=== PATIENT | female | born 1990 | race Caucasian/White ===

== ENCOUNTER 2021-06-03 10:53 | Emergency (ER) | payer BC, SELFPAY ==
[2021-06-03 11:02] VITALS: BP 115/76; PULSE 78; RESP 18; TEMP 36.7; O2SAT 100; BMI 21.6
--- NOTE | 2021-06-03 11:49 | ED.GENADULT ---
HPI - General Adult General Chief complaint: General Medical Stated complaint: poison tariq Time Seen by Provider: 06/03/21 11:49 History of Present Illness HPI narrative: patient complains of itchy rash all over body after gardening same as prior episodes of poison tariq, also complains of a foreign body sensation in the upper right lid eyelid Related Data Previous Rx's Medication Instructions Recorded cetirizine 10 mg PO DAILY PRN #14 cap MDD 06/03/21 rash and itch prednisone 10 mg PO DAILY 8 Days #8 tab 06/03/21 Allergies Allergy/AdvReac Type Severity Reaction Status Date / Time Sulfa (Sulfonamide Allergy Hives Verified 06/03/21 11:02 Antibiotics) Review of Systems Review of Systems: positive for itchy rash Negatives are no fever no chills no dizziness no weakness no feeling faint no headache no sore throat no difficulty breathing or swallowing no swelling in the throat Yes all other systems are reviewed and are negative PMFSH Past Medical History Source: nursing notes reviewed Medical History (Updated 06/04/21 @ 00:01 by Rossana Briones) Hernia Irregular heart beat Surgical History (Updated 06/03/21 @ 11:04 by Diane Roberts RN) History of cardiac radiofrequency ablation Social History Social History Advance Directives: Yes Advance Directives Information Provided: Yes Advance Directives on File: No Patient : No Physical Exam Vital Signs: Vital Signs: Last Vital Signs Temp 98.1 F 06/03/21 11:02 Pulse 78 06/03/21 11:02 Resp 18 06/03/21 11:02 BP 115/76 06/03/21 11:02 Pulse Ox 100 06/03/21 11:02 Body Mass Index 21.6 general appearance is no acute distress The head is normocephalic atraumatic Eyes no redness no discharge The voice is normal Chest is clear to auscultation bilateral with symmetric equal breath sounds Heart no murmurs Extremities full range of motion x4 Skin exam there is linear papular rash consistent with poison tariq with some excoriation but no evidence of redness or swelling, no tenderness no sign of cellulitis or abscess Course Course Course Narrative: patient is treated for poison tariq The right upper lid was flipped back and there was a small inflamed red area in the upper lid on the inner aspect but no foreign body, the eye was stained with no corneal abrasion, the eye was irrigated and his there was a small foreign body I could not see Discharge Plan Discharge Clinical Impression: Poison tariq Patient Disposition: Home, Self-Care Additional Instructions: we are treating for poison tariq with antihistamine medications and steroids Return any time any worse condition or any worse concerns Prescriptions: New cetirizine 10 mg capsule 10 mg PO DAILY MDD rash and itch PRN (Reason: rash and itch) Qty: 14 RF: 0 prednisone 10 mg tablet 10 mg PO DAILY 8 Days Qty: 8 RF: 0 Interventions: ED Discharge Assessment Last Done: 06/03/21 12:19 Discharge Date/Time: 06/03/21 12:20
[2021-06-03] MEDS: Loratadine 10 MG TABLET PO (11:57)
[2021-06-03] MEDS: predniSONE 20 MG TABLET 60 MG PO (11:57)
[2021-06-03] MEDS: Fluorescein Sodium STRIP 1 STRIP EYE-LEFT (12:15)
== END 2021-06-03 12:20 | disposition home or self-care (01) ==
PROVIDERS: Emergency Provider Emergency Medicine Emergency Medical Services
DX: L23.7 Allergic contact dermatitis due to plants, except food (principal); H02.811 Retained foreign body in right upper eyelid
CPT/HCPCS: 99283; 99284

== ENCOUNTER 2022-01-04 05:31 | Emergency (ER) | payer SELFPAY ==
[2022-01-04 05:50] VITALS: BP 106/68; PULSE 75; RESP 18; TEMP 36.6; O2SAT 98; BMI 21.4
[2022-01-04 06:19] VITALS: BP 115/83; PULSE 68; RESP 14; TEMP 36.6; O2SAT 99
[2022-01-04 06:20] LABS: COVID-19 Test Negative (Negative)
[2022-01-04] MEDS: Acetaminophen 325 MG TABLET 975 MG PO (06:25)
--- NOTE | 2022-01-04 06:25 | ED_ITS ---
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 Otherwise, she denies any GI or symptoms. Related Data Previous Rx's Medication Instructions Recorded cetirizine 10 mg capsule 10 mg PO DAILY PRN #14 cap MDD 06/03/21 rash and itch prednisone 10 mg tablet 10 mg PO DAILY 8 Days #8 tab 06/03/21 azithromycin 500 mg tablet 500 mg PO DAILY 3 Days #3 tab 01/04/22 Allergies Allergy/AdvReac Type Severity Reaction Status Date / Time Sulfa (Sulfonamide Allergy Hives Verified 06/03/21 11:02 Antibiotics) Review of Systems Verdana 4l Review of Systems: Verdana 4d Pertinent positives and Verdana 4d negatives as stated in HPI 10 point review of systems is otherwise negative. Verdana 4d PMFSH Past Medical History Source: nursing notes reviewed Medical History Hernia Irregular heart beat Surgical History History of cardiac radiofrequency ablation Social History Social History Advance Directives: No Advance Directives Information Provided: No Patient : No Physical Exam Verdana 4l Vital Signs: Verdana 4d Verdana 4d Vital Signs: Verdana 4d Verdana 4Bd Last Vital Signs Verdana 4d Financial Analysis Consultant New 4d Financial Analysis Consultant New 4d Temp 97.9 F 01/04/22 06:19 Financial Analysis Consultant New 4d Pulse 68 01/04/22 06:19 Financial Analysis Consultant New 4d Resp 14 01/04/22 06:19 BP 115/83 01/04/22 06:19 Pulse Ox 99 01/04/22 06:19 BMI result Body Mass Index 21.4 Course Course Course Narrative: 31-year-old female with history and clinical presentation consistent with sinusitis possibly contributed by viral/bacterial/allergy etiology. On review of all investigations patient is negative for COVID-19 and she received combination analgesics as well as Benadryl for her symptoms and on re-evaluation is feeling somewhat better. In addition, she will be discharged on a Z-Alex and instructed to follow-up with her primary care provider MDM - URI/Sore Throat Lab Data Labs: Lab Results 01/04/22 Range/Units 05:57 COVID-19 ([facility]) Negative (Negative) COVID-19 Clin Com See Note Discharge Plan Discharge Clinical Impression: Sinusitis Patient Disposition: Home, Self-Care Instructions: Rhinosinusitis (ED) Additional Instructions: Follow-up with primary care provider today and complete the entire course of antibiotics as provided. Consider [id number] Tylenol/ibuprofen as needed for pain control as well as cool mist humidifier at the bedside while sleeping. Return to the ER for worsening symptoms. Prescriptions: New azithromycin 500 mg tablet 500 mg PO DAILY 3 Days Qty: 3 0RF No Action cetirizine 10 mg capsule 10 mg PO DAILY MDD rash and itch PRN (Reason: rash and itch) Qty: 14 0RF prednisone 10 mg tablet 10 mg PO DAILY 8 Days Qty: 8 0RF Rx Instructions: prednisone taper, 60 mg by mouth once a day for 2 days then 40 mg by mouth once a day for 2 days then 20 mg by mouth once a day for 2 days then 10 mg by mouth once a day for 2 days Stand Alone Forms: Work/School Release
[2022-01-04] MEDS: Ketorolac Tromethamine 30 MG/ML VIAL 15 MG IM (06:26)
[2022-01-04] MEDS: diphenhydrAMINE HCL 25 MG TABLET PO (06:31)
== END 2022-01-04 06:39 | disposition home or self-care (01) ==
PROVIDERS: Emergency Provider Student in an Organized Health Care Education/Training Program
DX: J32.9 Chronic sinusitis, unspecified (principal); Z20.822 Contact with and (suspected) exposure to COVID-19
CPT/HCPCS: 87635; 96372; 99284; J1885; Q0163

== ENCOUNTER 2022-09-04 19:03 | Emergency (ER) | payer BC, SELFPAY ==
[2022-09-04 19:59] VITALS: BP 120/80; PULSE 99; RESP 18; TEMP 36.8; O2SAT 100; BMI 23.1
--- NOTE | 2022-09-04 21:03 | ED_ITS ---
HPI - Back Pain/Injury General Chief Complaint: Back Pain/Injury Stated Complaint: back pain; referred from [facility] Time Seen by Provider: 09/04/22 21:00 Source: patient Mode of arrival: ambulatory Limitations: no limitations History of Present Illness HPI Narrative: 31-year-old female with no pertinent PMHx presenting with low back pain. The patient reports that she bent over at the waist and slid an object that weighs around 20 lbs over this afternoon when she had the acute onset of low back pain. She reports that she felt her left leg went numb and has been intermittently numb since then. She also reports that she has lower abdominal pressure, and feels like she cannot urinate. She tells me that she has urinated since the incident but felt that it was only a ?dribble ?. She notes pain throughout lower back radiating to bilateral hips. She has been ambulatory since the incident states that she actually feels better when standing. She has not had any urinary or stool incontinence. She was seen at an urgent care this afternoon and they were concerned for cauda equina, she received Decadron at that time and was advised to come to the ED. At this time, she denies any saddle anesthesias, numbness or tingling of the lower extremities, chest pain, shortness of breath, abdominal pain, nausea, vomiting, dizziness, headache, fevers, chills. Denies IVDA and spinal surgeries or procedures. Tells me she had an episode like this years ago. Related Data Previous Rx's Medication Instructions Recorded cetirizine 10 mg capsule 10 mg PO DAILY PRN rash and itch 06/03/21 #14 caps prednisone 10 mg tablet 10 mg PO DAILY 8 days #8 tabs 06/03/21 azithromycin 500 mg tablet 500 mg PO DAILY 3 days #3 tabs 01/04/22 cyclobenzaprine 10 mg tablet 10 mg PO BEDTIME PRN muscle spasm 09/04/22 #7 tabs lidocaine 5 % topical patch 1 patch topical DAILY PRN pain #15 09/04/22 ea prednisone 20 mg tablet 60 mg PO DAILY 5 days #15 tabs 09/04/22 Allergies Allergy/AdvReac Type Severity Reaction Status Date / Time Sulfa (Sulfonamide Allergy Hives Verified 09/04/22 20:05 Antibiotics) Review of Systems Review of Systems: Constitutional : No Weight loss, No Fever, No Chills, No Fatigue, No Malaise ENT/Mouth : No sore throat, No Rhinorrhea Eyes: No Eye Pain, No Swelling, No Redness Cardiovascular : No Chest Pain, No SOB, No Dyspnea on Exertion, No Orthopnea, No Edema, No Palpitations Respiratory : No Cough, No Sputum, No Wheezing Gastrointestinal : No Nausea, No Vomiting, No Diarrhea, No Constipation, + abdominal Pain, No Hematochezia, No Melena Genitourinary : No Dysuria, No Urinary Frequency, No Hematuria, + urinary retention, no incontinence Musculoskeletal : + back pain, No Myalgias, No Joint Swelling Skin : No Skin Lesions, No rash Neuro : No Weakness, No Numbness, No Dizziness, No Headache Psych : No Anxiety/Panic, No Depression All other systems reviewed and are negative Yes all other systems are reviewed and are negative [facility] Past Medical History Attestation statement: The following information was validated with the patient. Source: old records reviewed and nursing notes reviewed Medical History Hernia Irregular heart beat Surgical History History of cardiac radiofrequency ablation Social History Social History Advance Directives: No Advance Directives Information Provided: No Physical Exam Vital Signs: Vital Signs: Last Vital Signs Temp 98.2 F 09/04/22 19:59 Pulse 99 09/04/22 19:59 Resp 18 09/04/22 19:59 BP 120/80 09/04/22 19:59 Pulse Ox 100 09/04/22 19:59 O2 Del Method 09/04/22 19:59 BMI result Body Mass Index 23.1 VSS Appearance: Alert.? Oriented X3.? No acute distress.? Head: Normocephalic, atraumatic, no step-offs or deformities Eyes: Pupils equal, round and reactive to light.? ENT: Pharynx normal.? Neck: Normal inspection.? Neck supple.? CVS: Normal heart rate and rhythm.? Pulses normal, 2+ DP and PT. Respiratory: No respiratory distress.? Breath sounds normal.? Abdomen: Soft and nontender.? Skin: Skin warm and dry.? Normal skin color.? Normal skin turgor.? Extremities: No lower extremity edema.? No calf ttp. 5/5 strength to bilateral upper and lower extremities. Ambulatory with a steady gait normal coordination. DTRs intact bilaterally at the patella. Normal sensation to bilateral lower extremities, no saddle paresthesias. Rectal exam: reffused. Back: No midline tenderness, minimal paraspinal lumbar tenderness, no C-spine tenderness, full range of motion, no CVA tenderness bilaterally Neuro: Oriented X 3.? No motor deficit.? No sensory deficit. CN 2-12 intact. No saddle anesthesia. Course Reevaluation(s) Reevaluation #1: Prior to lab draw or imaging, patient requesting to go home. Explained that if this is cauda equina or an acute spinal fracture, it could result in permanent neurological damage and/or disability. Patient still requesting to go home, will be discharged AMA . I did have my attending Dr. Coreas who personally evaluated patient had a long conversation with patient about further eval and tx. Likely herniated disc or sciatica however as we explained to patient cauda equina can not be ruled out with out MRI. Patient adamant that she would like to go home. Went over strict return precautions and when to return. Patient will leave AMA. Time: 21:45 MDM - Back Pain/Injury MDM Narrative Medical decision making narrative: 2129 31 y/o female with no PMHx presenting with lower back pain and urinary retention. Sent in by Urgent Care to rule out cauda equina, given decadron CLINICAL PHARMACY COORDINATOR. (patient was in the waiting room her for around 2 hours prior to being seen by this PA-C) PE notable for minimal bialteral paraspinal lumbar tenderness. No saddle paresthesias. Normal DRT to patella. Ambulating w/ steady gait normal coordination. Refusing rectal exam Differentials include sciatica, cauda equina, lumbar sprain/strain. Low suspicion for acute fracture, epidural abscess. Will obtain lumbar spine CT, basic labs, ESR/CRP. If ESR/CRP is elevated patient will be transfered to a facility with MRI, MRI currently not available here. Medical Records Attestation: I reviewed the patient's medical records. Lab Data Attestation: I reviewed the patient's lab results. Critical Care Time Critical Care Time Critical Care Time: No Discharge Plan Discharge Clinical Impression: Lower back pain, Left against medical advice Patient Disposition: Home, Self-Care Instructions: Back Pain (ED) Additional Instructions: Take your medications as prescribed. If you were prescribed antibiotics today, it is important that you take your medication to their entirety, do not skip any doses, do not finish them early. Follow-up with your primary care provider this week. Return to the emergency department with new or worsening symptoms. Such as fevers, chills, chest pain, shortness of breath, nausea, vomiting, dizziness, headache, vision changes, lethargy, weakness, lower extremity numbness, tingling, urinary or bowel incontinence or retention In case of emergency call 911 You refuse laboratory studies, rectal exam, imaging, transfer to other facility. Meaning certain diagnoses could go missed or undiagnosed. You will likely require an to further investigate the symptoms. You were sent in to evaluate for possible cauda equina syndrome, inorder to diagnose this you need an MRI. This diagnosis can lead to disability worsening pain and paralysis You can take as indicated on the packages needed for pain or discomfort Prescriptions: New cyclobenzaprine 10 mg tablet 10 mg PO BEDTIME PRN (Reason: muscle spasm) Qty: 7 0RF prednisone 20 mg tablet 60 mg PO DAILY 5 Days Qty: 15 0RF lidocaine 5 % adhesive patch,medicated 1 patch topical DAILY PRN (Reason: pain) Qty: 15 0RF Rx Instructions: leave on most painful area for up to 12 hrs No Action cetirizine 10 mg capsule 10 mg PO DAILY MDD rash and itch PRN (Reason: rash and itch) Qty: 14 0RF prednisone 10 mg tablet 10 mg PO DAILY 8 Days Qty: 8 0RF Rx Instructions: prednisone taper, 60 mg by mouth once a day for 2 days then 40 mg by mouth once a day for 2 days then 20 mg by mouth once a day for 2 days then 10 mg by mouth once a day for 2 days azithromycin 500 mg tablet 500 mg PO DAILY 3 Days Qty: 3 0RF Referrals: [facility] [Provider Group] - 1 day Physician,None [Primary Care Provider] - 2 days Stand Alone Forms: Against Medical Advice, Work/School Release
[2022-09-04] MEDS: predniSONE 20 MG TABLET 60 MG PO (21:56)
[2022-09-04] MEDS: Lidocaine 4 % Patch ADH..PATCH 1 PATCH TRANSDERMA (21:56)
[2022-09-04] MEDS: Cyclobenzaprine HCl 10 MG TABLET PO (21:56)
== END 2022-09-04 22:12 | disposition home or self-care (01) ==
PROVIDERS: Emergency Provider Emergency Medicine Emergency Medical Services
DX: M54.50 Low back pain, unspecified (principal); R33.9 Retention of urine, unspecified; Z79.899 Other long term (current) drug therapy
CPT/HCPCS: 99283